=== PATIENT | female | born 1980 | race Two or more races ===

== ENCOUNTER 2021-04-12 09:36 | Day surgery (SDC) | payer BC | END 2021-04-12 11:28 | disposition home or self-care (01) | LOC: CSHSDC/OP 09:36 | PROVIDERS: ATTEND Family Medicine | DX: Z23 Encounter for immunization (principal); U07.1 COVID-19; E11.9 Type 2 diabetes mellitus without complications | CPT/HCPCS: 96365; J3490; M0243; Q0244 ==

== ENCOUNTER 2023-10-10 08:30 | Outpatient (CLI) | payer OTHER | END 2023-10-10 08:31 | disposition home or self-care (01) | LOC: CSHMAMMO 08:30 | PROVIDERS: ATTEND Family Medicine | DX: Z12.31 Encounter for screening mammogram for malignant neoplasm of breast (principal) | CPT/HCPCS: 77063; 77067 ==

== ENCOUNTER 2023-10-23 11:40 | Emergency (ER) | payer OTHER ==
[2023-10-23] MEDS ORDERED: Metoclopramide HCl 10 MG (2 mL) VIAL ONE (13:01)
[2023-10-23] MEDS ORDERED: Ketorolac Tromethamine 30 MG (1 mL) VIAL ONE (13:02)
[2023-10-23 13:48] LABS: #Basophils 0.07 10x3/uL (0.0-0.2); #Eosinphils 0.14 10x3/uL (0.0-0.5); #Monocytes 0.62 10x3/uL (0.0-1.1); #Neutrophils 5.59 10x3/uL (1.5-8.4); %Basophils 0.8 % (0.0-2.0); %Eosinophils 1.5 % (0.0-6.0); %Lymphocytes 29.5 % (18.0-47.0); %Monocytes 6.8 % (0.0-10.0); %Neutrophils 61.2 % (40.0-75.0); Hemoglobin 15.6 g/dL (12.0-15.5); Mean Corpuscular HGB CONC 36.3 g/dL (32.0-36.0); Mean Corpuscular Hemoglobin 30.6 pg (27.0-33.0); Mean Corpuscular Volume 84.5 fL (81.6-98.3); Mean Platelet Volume 9.9 fL (7.4-10.4); Platelet Count 321 10x3/uL (150-450); RBC Distribution Width 12.3 % (11.5-14.5); Red Blood Cell (RBC) Count 5.09 10x6/uL (3.90-5.03); White Blood Cell (WBC) Count 9.1 10x3/uL (3.5-10.5)
[2023-10-23 13:54] LABS: BHCG - Serum Negative (NEGATIVE); Bilirubin Neg (Negative); Blood, Urine 25 (Negative); Glucose, Urine (Dipstick) Normal (Negative); Ketone, Urine Negative (Negative); Leukocyte 100 (Negative); Nitrite Negative (Negative); Pregs Control Background? CLEAR/WHITE (CLR/WHITE); Pregs Control Bar Appear? YES (CONTROL BAR); Protein, Urine (Dipstick) 100 mg/dl (Neg-Trace); Urobilinogen Normal mg/dL (Less than 2)
[2023-10-23 13:58] LABS: ALT (SGPT) 33 U/L (8-55); AST (SGOT) 18 U/L (5-34); Albumin 4.3 g/dL (3.5-5.0); Alkaline Phosphatase 55 U/L (40-110); Anion Gap 14 mmol/L (10-20); BUN (Urea Nitrogen) 23 mg/dL (7.0-18.7); Bilirubin, Total 0.7 mg/dL (0.2-1.2); Calc. Creatinine Clearance 0 mL/min (70-130); Calcium 9.8 mg/dL (7.8-10.44); Carbon Dioxide 28 mmol/L (22-29); Chloride 97 mmol/L (98-107); Clarity Hazy (Clear); Estimated GFR 66; Globulin 3.5 g/dL (2.4-3.5); Glucose 190 mg/dL (70-105); Lipase 31 U/L (8-78); Magnesium 1.6 mg/dL (1.6-2.6); Potassium 3.3 mmol/L (3.5-5.1); Protein, Total 7.8 g/dL (6.0-8.3); Sodium 136 mmol/L (136-145)
[2023-10-23 14:13] LABS: CAUTI Indications for Culture Pelvic or flank pain
[2023-10-23 14:15] LABS: Calcium Oxalate Crystals Rare HPF (None Seen)
[2023-10-23 14:19] LABS: Bacteria/HPF 1+ HPF (None Seen)
[2023-10-23 14:20] LABS: Urine Culture Reflex No No
== END 2023-10-23 15:08 | disposition home or self-care (01) ==
LOC: CSHERS 11:40
DX: K80.20 Calculus of gallbladder without cholecystitis without obstruction (principal); I10 Essential (primary) hypertension; E78.5 Hyperlipidemia, unspecified; E11.9 Type 2 diabetes mellitus without complications; Z55.6 Problems related to health literacy
CPT/HCPCS: 76705; 80053; 81001; 83690; 83735; 84703; 85025; 96374; 96375; J1885; J2765

== ENCOUNTER 2024-10-25 16:34 | Emergency (ER) | payer OTHER ==
[2024-10-25] MEDS ORDERED: Boostrix 0.5 ML (Tdap) VIAL (>/=7 yrs of age) ONE (17:40)
[2024-10-25] MEDS ORDERED: Bacitracin 1 PK ONE (19:29)
== END 2024-10-25 19:46 | disposition home or self-care (01) ==
LOC: CSHERS 16:34
DX: S61.210A Laceration without foreign body of right index finger without damage to nail, initial encounter (principal); I10 Essential (primary) hypertension; E11.9 Type 2 diabetes mellitus without complications; Z23 Encounter for immunization; W26.8XXA Contact with other sharp object(s), not elsewhere classified, initial encounter; Y99.0 Civilian activity done for income or pay
CPT/HCPCS: 12001; 90471; 90715

== ENCOUNTER 2024-11-20 09:08 | Outpatient (CLI) | payer OTHER | END 2024-11-20 09:09 | disposition home or self-care (01) | LOC: CSHMAMMO 09:08 | PROVIDERS: ATTEND Family Medicine | DX: Z12.31 Encounter for screening mammogram for malignant neoplasm of breast (principal) | CPT/HCPCS: 77063; 77067 ==